=== PATIENT | female | born 1965 | race Caucasian/White ===

== ENCOUNTER 2017-12-20 11:39 | Day surgery (SDC) | payer OTHER ==
[2017-12-20 12:33] LABS: ADD MAN DIFF? NO
[2017-12-20 12:36] LABS: BASOPHIL # 0.1 10^3/ul (0.0-0.1); BASOPHILS % 1.4 % (0.0-2.0); EOSINOPHILS # 0.1 10^3/ul (0.0-0.5); HEMATOCRIT 37.6 % (37.0-47.0); HEMOGLOBIN 12.9 g/dl (12.0-16.0); LYMPHOCYTES # 2.3 10^3/ul (0.8-2.9); LYMPHOCYTES % 44.9 % (15.0-51.0); MEAN CORPUSCULAR HEMOGLOBIN 30.8 pg (29.0-33.0); MEAN CORPUSCULAR HGB CONC 34.3 g/dl (32.0-37.0); MEAN CORPUSCULAR VOLUME 89.7 fl (82.0-101.0); MEAN PLATELET VOLUME 11.9 fl (7.4-10.4); MONOCYTE # 0.3 10^3/ul (0.3-0.9); MONOCYTES % 6.2 % (0.0-11.0); NEUTROPHIL # 2.3 10^3/ul (1.6-7.5); NEUTROPHILS % 45.3 % (39.0-77.0); PLATELET COUNT 137 10^3/UL (140-415); RED BLOOD COUNT 4.19 10^6/ul (4.20-5.40)
[2017-12-20 12:50] LABS: ALANINE AMINOTRANSFERASE 22 IU/L (13-69); ALBUMIN 4.3 g/dl (3.3-4.9); ALBUMIN/GLOBULIN RATIO 1.72; ALKALINE PHOSPHATASE 40 IU/L (42-121); ANION GAP 10 (8-16); ASPARTATE AMINO TRANSFERASE 22 IU/L (15-46); BILIRUBIN,INDIRECT 1.2 mg/dl (0-1.1); BILIRUBIN,TOTAL 1.2 mg/dl (0.2-1.3); BLOOD UREA NITROGEN 14 mg/dl (7-20); CALCIUM 9.1 mg/dl (8.4-10.2); CARBON DIOXIDE 27 mmol/L (21-31); CHLORIDE 107 mmol/L (97-110); CREATININE 0.59 mg/dl (0.44-1.00); GLUCOSE 86 mg/dl (70-220); SODIUM 140 mmol/L (135-144); TOTAL PROTEIN 6.8 g/dl (6.1-8.1)
[2017-12-20 12:55] LABS: INR 0.87; PARTIAL THROMBOPLASTIN TIME 31.9 Sec (25.0-35.0); PROTIME 11.9 Sec (11.9-14.9); PT RATIO 0.9
[2017-12-20] MEDS ORDERED: LABETALOL HCL 20MG INJ IV ×2 (13:30→15:00)
[2017-12-20] MEDS ORDERED: HYDROmorphONE 1 MG/5 ML IV SYRINGE IV ×3 (13:30→15:00)
[2017-12-20] MEDS ORDERED: MIDAZOLAM 1 MG/ML 2 ML INJ (13:30)
[2017-12-20] MEDS ORDERED: FAMOTIDINE 20 MG INJ (13:30)
[2017-12-20] MEDS ORDERED: DEXAMETHASONE 4 MG/ML 1 ML INJ (13:30)
[2017-12-20] MEDS ORDERED: DIPHENHYDRAMINE 50 MG INJ IV ×2 (13:30→15:00)
[2017-12-20] MEDS ORDERED: MEPERIDINE 25 MG INJ IV ×2 (13:30→15:00)
[2017-12-20] MEDS ORDERED: FENTAnyl 50 MCG/ML VIAL IV ×4 (13:30→15:00)
[2017-12-20] MEDS ORDERED: LIDOCAINE 2% (SDV) 5 ML INJ (13:30)
[2017-12-20] MEDS ORDERED: ONDANSETRON 4 MG INJ IV ×2 (13:30→15:00)
[2017-12-20] MEDS ORDERED: PROPOFOL 40 ML (13:30)
[2017-12-20] MEDS ORDERED: ALBUTEROL 0.083% (NEB) 2.5 MG/3 ML AMP HHN ×2 (13:30→15:00)
[2017-12-20] MEDS ORDERED: OXYCODONE/ACETAMINOPHEN (5/325) TAB PO ×4 (13:30→15:00)
[2017-12-20] MEDS ORDERED: ONDANSETRON 4 MG INJ (13:30)
[2017-12-20] MEDS ORDERED: FENTAnyl 50 MCG/ML VIAL (13:30)
[2017-12-20] MEDS ORDERED: morphine (1 MG/ML) 10ML SYRINGE IV ×2 (13:30)
[2017-12-20] MEDS ORDERED: CEFAZOLIN 1 GM INJ (13:30)
[2017-12-20] MEDS ORDERED: KETOROLAC 30 MG INJ (13:31)
[2017-12-20] MEDS ORDERED: KETOROLAC 30 MG INJ IV (15:00)
[2017-12-20] MEDS ORDERED: MIDAZOLAM 1 MG/ML 2 ML INJ IV (15:00)
[2017-12-20] MEDS ORDERED: METOCLOPRAMIDE 10 MG INJ IV (15:00)
[2017-12-20] MEDS ORDERED: EPHEDrine SULFATE 50 MG/5 ML SYG IV (15:00)
[2017-12-20] MEDS ORDERED: hydrALAzine 20 MG INJ IV (15:00)
[2017-12-20] MEDS: FENTAnyl 50 MCG/ML VIAL IV (15:02)
[2017-12-20] MEDS: HYDROmorphONE 1 MG/5 ML IV SYRINGE IV (15:02)
[2017-12-20] MEDS: DOXYCYCLINE 100 MG TAB PO (15:06)
== END 2017-12-20 16:40 | disposition home or self-care (01) ==
LOC: SDS 11:39
DX: N95.0 Postmenopausal bleeding (principal)
CPT/HCPCS: 58558; 80053; 85025; 85610; 85730; 88305